=== PATIENT | male | born 1965 | race African-American/Black ===

== ENCOUNTER 2022-10-31 19:53 | Inpatient (IN) | payer OTHER ==
[~2022-10-31] VITALS: Ht 172.7 cm; Wt 72.6 kg
[2022-10-31 20:25] LABS: BASOPHILS % 0.5 % (0.0-2.0); EOSINOPHILS % 2.8 % (0.0-5.0); HEMATOCRIT. 44.2 % (42.0-52.0); HEMOGLOBIN. 14.6 g/dL (14.0-18.0); LYMPHOCYTES % 26.5 % (20.0-50.0); MEAN CORPUSCULAR HEMOGLOBIN 27.8 pg (28.0-32.0); MEAN CORPUSCULAR VOLUME 84.1 fL (80.0-94.0); MEAN PLATELET VOLUME 9.1 fl (7.4-10.4); MONOCYTES % 8.2 % (2.0-8.0); PLATELET 158 x1000/uL (130-400); RED BLOOD CELL COUNT 5.25 mill/uL (4.7-6.1); RED CELL DISTRIBUTION WIDTH 15.1 % (11.6-14.6)
[2022-10-31 20:33] LABS: CHLORIDE 110 mEq/L (98-107)
[2022-10-31] MEDS ORDERED: AZITHROMYCIN 500MG/250ML 250 ML IV NR (21:00)
[2022-10-31] MEDS ORDERED: CEFTRIAXONE 1GM PREMIX 50 ML IV NR (21:00)
[2022-10-31] MEDS ORDERED: FUROSEMIDE 40MG/4ML VIAL IVP NR (21:15)
[2022-11-01] VITALS (7 sets, daily range): BP systolic 117–150; BP diastolic 83–105
[2022-11-01] MEDS ORDERED: ALBU4TAB6 MT (02:39)
[2022-11-01] MEDS ORDERED: IPRATROPIUM/ALBUTEROL 0.5-3(2.5)MG/3ML NEB HHN PRN (06:15)
[2022-11-01] MEDS ORDERED: CEFTRIAXONE 1GM PREMIX 50 ML IV SCH (09:00)
[2022-11-01 11:27] LABS: BASOPHILS % 0.4 % (0.0-2.0); EOSINOPHILS % 1.3 % (0.0-5.0); HEMATOCRIT. 42.5 % (42.0-52.0); HEMOGLOBIN. 14.3 g/dL (14.0-18.0); LYMPHOCYTES % 25.9 % (20.0-50.0); MEAN CORPUSCULAR HEMOGLOBIN 28.2 pg (28.0-32.0); MEAN CORPUSCULAR VOLUME 83.9 fL (80.0-94.0); MEAN PLATELET VOLUME 9.7 fl (7.4-10.4); MONOCYTES % 8.5 % (2.0-8.0); NEUTROPHILS % 63.9 % (40.0-76.0); PLATELET 144 x1000/uL (130-400); RED BLOOD CELL COUNT 5.06 mill/uL (4.7-6.1); RED CELL DISTRIBUTION WIDTH 15.1 % (11.6-14.6)
[2022-11-01] MEDS: AMLODIPINE 10MG TABLET PO SCH (13:01)
[2022-11-01] MEDS: HEPARIN 5000 UNITS/ML VIAL SUBCUT SCH ×2 (13:50→21:48)
[2022-11-01 15:44] LABS: CLARITY URINE CLEAR (CLEAR); COLOR URINE YELLOW (YELLOW); KETONES URINE TRACE (NEGATIVE); LEUKOCYTE ESTERASE URINE NEGATIVE (NEGATIVE); NITRITE URINE NEGATIVE (NEGATIVE); OCCULT BLOOD URINE NEGATIVE (NEGATIVE); PROTEIN URINE NEGATIVE (NEGATIVE); SPECIFIC GRAVITY URINE 1.015 (1.005-1.030); UROBILINOGEN URINE 0.2 E.U./dL (0.2-1.0)
[2022-11-01 16:13] LABS: *AMPHETAMINES SCREEN URINE NEGATIVE (NEGATIVE); *BARBITURATES SCREEN URINE NEGATIVE (NEGATIVE); *BENZODIAZEPINES SCREEN URINE NEGATIVE (NEGATIVE); *COCAINE SCREEN URINE NEGATIVE (NEGATIVE); CANNABINOID URINE SCREEN NEGATIVE (NEGATIVE); METHADONE URINE SCREEN NEGATIVE (NEGATIVE); OPIATES URINE SCREEN NEGATIVE (NEGATIVE); PHENCYCLIDINE URINE SCREEN NEGATIVE (NEGATIVE)
[2022-11-01] MEDS: FUROSEMIDE 40MG/4ML VIAL IVP SCH (17:24)
[2022-11-01] MEDS ORDERED: CEFTRIAXONE 1,000 MG in DEXTROSE 5% WATER 50 ML IV SCH (21:00)
[2022-11-02] VITALS: BP 145/105
[2022-11-02 04:00] VITALS: BP 145/102
[2022-11-02] MEDS: HEPARIN 5000 UNITS/ML VIAL SUBCUT SCH ×2 (05:03→14:16)
[2022-11-02] MEDS: FUROSEMIDE 40MG/4ML VIAL IVP SCH (05:03)
[2022-11-02 08:00] VITALS: BP 138/80
[2022-11-02] MEDS: AMLODIPINE 10MG TABLET PO SCH (09:12)
[2022-11-02 12:00] VITALS: BP 123/87
[2022-11-02] MEDS ORDERED: CARVEDILOL 3.125 MG TABLET PO SCH (12:45)
[2022-11-02] MEDS ORDERED: COR3 PO (13:12)
[2022-11-02] MEDS ORDERED: AMLO10TA80 PO (13:12)
[2022-11-02] MEDS ORDERED: FURO40TA5 MT (13:12)
[2022-11-02 14:31] VITALS: BP 114/89
== END 2022-11-02 16:30 | disposition home or self-care (01) | DRG 291 ==
LOC: ER 19:53 → MICUSO 22:30 → ENRESERV 11-01 00:03 → 7WST 11-01 01:46 → CANBEDREQ 11-02 06:12
PROVIDERS: ADMIT Internal Medicine; ATTEND Internal Medicine
DX: I11.0 Hypertensive heart disease with heart failure (principal); I50.33 Acute on chronic diastolic (congestive) heart failure; J18.9 Pneumonia, unspecified organism; J96.00 Acute respiratory failure, unspecified whether with hypoxia or hypercapnia; J45.901 Unspecified asthma with (acute) exacerbation; I42.9 Cardiomyopathy, unspecified; I34.0 Nonrheumatic mitral (valve) insufficiency; J45.909 Unspecified asthma, uncomplicated; Z88.6 Allergy status to analgesic agent
CPT/HCPCS: 36415; 71045; 80048; 80053; 80305; 81003; 83735; 83880; 84484; 85025; 85379; 93005; 93306; 93970; 99285; J0456; J0696; J1644; J1940; J7060